=== PATIENT | male | born 1995 | race Hispanic/Latino ===

== ENCOUNTER 2019-03-25 10:54 | Emergency (ER) | payer SELFPAY ==
[~2019-03-25] VITALS: Ht 172.7 cm; Wt 62.0 kg
[2019-03-25] MEDS ORDERED: ADVI100T PO (11:31)
[2019-03-25 12:03] LABS: BASO % 0.4 % (0.0-1.0); EOS # 0.1 10^3/uL (0.0-0.50); EOS % 1.5 % (0.0-3.0); HEMATOCRIT 44.5 % (42.0-52.0); HEMOGLOBIN 15.2 g/dl (13.5-17.5); LYMPH # 1.2 10^3/uL (1.5-6.5); LYMPH % 24.7 % (24.0-44.0); MEAN CORPUSCULAR HEMOGLOBIN 29.9 pg (27.0-33.0); MEAN CORPUSCULAR HGB CONC 34.2 g/dl (32.0-36.5); MEAN CORPUSCULAR VOLUME 87.4 fl (80.0-96.0); MONO # 0.3 10^3/uL (0.0-0.8); NEUTROPHILS # 3.2 10^3/uL (1.8-7.7); NEUTROPHILS % 67.2 % (36.0-66.0); PLATELET COUNT, AUTOMATED 247 10^3/uL (150-450); RED BLOOD COUNT 5.09 10^6/uL (4.30-6.10); WHITE BLOOD COUNT 4.8 10^3/uL (4.0-10.0)
[2019-03-25 12:39] LABS: ALBUMIN 4.7 GM/DL (3.2-5.2); ALT/SGPT 60 U/L (12-78); BILIRUBIN,TOTAL 0.7 MG/DL (0.2-1.0); BLOOD UREA NITROGEN 12 MG/DL (7-18); CALCIUM LEVEL 9.9 MG/DL (8.5-10.1); CARBON DIOXIDE LEVEL 28 MEQ/L (21-32); CHLORIDE LEVEL 106 MEQ/L (98-107); CREATININE FOR GFR 0.84 MG/DL (0.70-1.30); GLOMERULAR FILTRATION RATE > 60.0 (>60); GLUCOSE, FASTING 88 MG/DL (70-100); POTASSIUM SERUM 3.8 MEQ/L (3.5-5.1); SODIUM LEVEL 140 MEQ/L (136-145); TOTAL PROTEIN 8.2 GM/DL (6.4-8.2)
[2019-03-25] MEDS ORDERED: NAPROXEN 250 MG TAB PO ONE (13:30)
--- NOTE | 2019-03-25 13:33 | REP ---
Clinical: Left flank pain. Technique: Real time krishna scale ultrasound examination using curved array transducer. Findings: Bilateral kidneys are normal in contour, size, echogenicity, and reniform shape without hydronephrosis, nephrolithiasis, cystic or renal mass lesion. Right kidney measures 10.2 x 5.4 x 3.0 cm. Left kidney measures 10.4 x 4.6 x 5.8 cm. No perinephric fluid collection. Bladder is normal. Prostate gland measures 4.3 x 4.3 x 2.6 cm (25 ml). Impression: Normal kidneys. No hydronephrosis. Electronically Signed by Jasbir Rizo MD 03/25/2019 01:25 P
--- NOTE | 2019-03-25 13:51 | REP ---
Clinical: Left-sided chest pain . Comparison: None . Technique: PA and lateral. Findings: The mediastinum and cardiac silhouette are normal. The lung kinsey are clear and without acute consolidation, effusion, or pneumothorax. The skeletal structures are intact and normal. Impression: 1. No acute cardiopulmonary process. Electronically Signed by Jasbir Rizo MD 03/25/2019 01:42 P
[2019-03-25 14:16] VITALS: BP 140/78
[2019-03-25] MEDS ORDERED: NAPR-885 PO (14:56)
[2019-03-25] MEDS ORDERED: CYCL10TA PO (14:56)
== END 2019-03-25 15:08 | disposition home or self-care (01) ==
LOC: M ED 10:54
DX: S29.012A Strain of muscle and tendon of back wall of thorax, initial encounter (principal); X58.XXXA Exposure to other specified factors, initial encounter; Y92.89 Other specified places as the place of occurrence of the external cause; Z79.1 Long term (current) use of non-steroidal anti-inflammatories (NSAID)